=== PATIENT | female | born 1960 | race Caucasian/White ===

== ENCOUNTER 2016-05-26 14:52 | Inpatient (IN) | payer BC ==
[2016-05-26] MEDS ORDERED: DAPTOmycin 500 MG in SODIUM CHLORIDE 0.9% 50 ML IV STA (15:44)
[2016-05-26] MEDS ORDERED: SODIUM CHLORIDE 0.9% 1,000 ML IV STA (15:44)
--- NOTE | 2016-05-26 15:48 | ED ---
General Adult HPI - General Chief complaint: Skin/Abscess/Foreign Body Stated complaint: Fall/Laceration Leg Swelling Time Seen by Provider: 05/26/16 15:35 Source: patient, RN notes reviewed Mode of arrival: ambulatory Limitations: no limitations - History of Present Illness Initial comments: 55-year-old female presents to the emergency department with a chief complaint of left nails cellulitis. Patient states that back in March she was hiking in [place] she tripped and fell and got a small cut in her left nails. Patient states that about a week or 2 ago she started now some redness and erythema around the area she went to . she is put on doxycycline for home. Patient states she's been taking this for about a week and today she noticed increased redness she's having drainage from the area and she noticed increased tenderness to touch. Patient states she's also notes that her leg is almost doubled inside due to the redness and swelling. Patient states that she was concerned due to the fact that the redness and swelling just continued so she thought that she should be evaluated. She has noticed some drainage from the area. Patient denies any recent fever, chills, shortness of breath, chest pain, back pain, abdominal pain, nausea vomiting, numbness or tingling, dysuria or hematuria, constipation or diarrhea, headaches or visual changes, or any other current symptoms. - Related Data Home Medications Medication Instructions Recorded Confirmed Alendronate Sodium [Fosamax] 70 mg PO TU 05/26/16 05/26/16 Doxycycline Hyclate [Vibramycin] 100 mg PO BID 05/26/16 05/26/16 Pravastatin Sodium [Pravachol] 40 mg PO HS 05/26/16 05/26/16 diphenhydrAMINE HCL [Benadryl] 25 mg PO BID 05/26/16 05/26/16 Allergies Allergy/AdvReac Type Severity Reaction Status Date / Time Penicillins AdvReac Rash/Hives Verified 05/26/16 15:42 Review of Systems ROS Statement: Those systems with pertinent positive or pertinent negative responses have been documented in the HPI. ROS Other: All systems not noted in ROS Statement are negative. Past Medical History Past Medical History: Hyperlipidemia Additional Past Medical History / Comment(s): seasonal allergies History of Any Multi-Drug Resistant Organisms: None Reported Past Surgical History: Back Surgery, Hysterectomy Past Psychological History: No Psychological Hx Reported Smoking Status: Current every day smoker Past Alcohol Use History: Occasional Past Drug Use History: None Reported General Exam - General Exam Comments Initial Comments: General: The patient is awake and alert, in no distress, and does not appear acutely ill. Neck: The neck is supple, there is no tenderness. Cardiovascular: There is a regular rate and rhythm. No murmur, rub or gallop is appreciated. Respiratory: Lungs are clear to auscultation, respirations are non-labored, breath sounds are equal. No wheezes, stridor, rales, or rhonchi. Musculoskeletal: Sensation intact with 2+ pulses at the left flexion. Full range of motion left knee and left ankle. Patient does have a small wound to the anterior aspect of the left nails that does have some purulent discharge. Patient does appear associated redness and swelling to the left nails. Neurological: CN II-XII intact, There are no obvious motor or sensory deficits. Coordination appears grossly intact. Speech is normal. Skin: Skin is warm and dry and no rashes or lesions are noted. Psychiatric: Normal mood and affect. Limitations: no limitations Course Vital Signs 05/26/16 15:04 Temperature 98.8 F Pulse Rate 94 Respiratory 20 Rate Blood Pressure 143/74 O2 Sat by Pulse 97 Oximetry Medical Decision Making - Medical Decision Making 55-year-old female presents for left nails cellulitis that has failed outpatient treatment with a week of antibiotics intense to getting worse with more drainage and redness. This time we start patient on IV antibiotics. At this time a purulent material was drained from the abscess area. Patient tolerated well. We will admit the patient IV antibiotics. The patient will be admitted to Dr. Haynes crash the case was discussed with Dr. Archuleta. - Lab Data Result diagrams: 05/26/16 16:23 05/26/16 16:23 Lab Results 05/26/16 05/26/16 Range/Units 16:23 16:23 WBC 8.4 (3.8-10.6) k/uL RBC 4.53 (3.80-5.40) m/uL Hgb 13.8 (11.4-16.0) gm/dL Hct 42.7 (34.0-46.0) % MCV 94.2 (80.0-100.0) fL MCH 30.5 (25.0-35.0) pg MCHC 32.4 (31.0-37.0) g/dL RDW 12.6 (11.5-15.5) % Plt Count 306 (150-450) k/uL Neutrophils % 68 % Lymphocytes % 21 % Monocytes % 6 % Eosinophils % 1 % Basophils % 1 % Neutrophils # 5.7 (1.3-7.7) k/uL Lymphocytes # 1.8 (1.0-4.8) k/uL Monocytes # 0.5 (0-1.0) k/uL Eosinophils # 0.1 (0-0.7) k/uL Basophils # 0.1 (0-0.2) k/uL Sodium 141 (137-145) mmol/L Potassium 4.6 (3.5-5.1) mmol/L Chloride 102 (98-107) mmol/L Carbon Dioxide 26 (22-30) mmol/L Anion Gap 13 mmol/L BUN 14 (7-17) mg/dL Creatinine 0.68 (0.52-1.04) mg/dL Est GFR (MDRD) Af Amer >60 (>60 ml/min/1.73 sqM) Est GFR (MDRD) Non-Af >60 (>60 ml/min/1.73 sqM) Glucose 88 (74-99) mg/dL Calcium 9.8 (8.4-10.2) mg/dL Total Bilirubin 0.8 (0.2-1.3) mg/dL AST 41 H (14-36) U/L ALT 46 (9-52) U/L Alkaline Phosphatase 107 (38-126) U/L Total Protein 8.0 (6.3-8.2) g/dL Albumin 4.6 (3.5-5.0) g/dL - Radiology Data Radiology results: report reviewed, image reviewed Disposition Clinical Impression: Cellulitis of left lower leg, Failure of outpatient treatment, Abscess of left lower leg Disposition: ADMITTED IP TO THIS [facility] Condition: Stable Time of Disposition: 18:13 Decision Date: 05/26/16 Decision Time: 18:13
[2016-05-26 16:39] LABS: Basophils # (A) 0.1 k/uL (0-0.2); Basophils % (A) 1 %; CH 31.6; CHCM 33.6; Eosinophils # (A) 0.1 k/uL (0-0.7); Eosinophils % (A) 1 %; HCT 42.7 % (34.0-46.0); HDW 2.44; HGB 13.8 gm/dL (11.4-16.0); Luc # (Auto) 0.26; Luc % (Auto) 3; Lymphocytes # (A) 1.8 k/uL (1.0-4.8); Lymphocytes % (A) 21 %; MCH 30.5 pg (25.0-35.0); MCHC 32.4 g/dL (31.0-37.0); MCV 94.2 fL (80.0-100.0); Mean Platelet Volume 6.8; Monocytes # (A) 0.5 k/uL (0-1.0); Monocytes % (A) 6 %; Neutrophils # (A) 5.7 k/uL (1.3-7.7); Neutrophils % (A) 68 %; RBC 4.53 m/uL (3.80-5.40); RDW 12.6 % (11.5-15.5); WBC 8.4 k/uL (3.8-10.6)
[2016-05-26 16:48] LABS: ALT 46 U/L (9-52); AST 41 U/L (14-36); Alkaline Phosphatase 107 U/L (38-126); Anion Gap 13 mmol/L; Blood Urea Nitrogen 14 mg/dL (7-17); Calcium 9.8 mg/dL (8.4-10.2); Carbon Dioxide 26 mmol/L (22-30); Chloride 102 mmol/L (98-107); Glucose 88 mg/dL (74-99); Non-African American GFR(MDRD) >60 (>60 ml/min/1.73 sqM); Sodium 141 mmol/L (137-145); Total Bilirubin 0.8 mg/dL (0.2-1.3)
[2016-05-26 16:51] LABS: Potassium 4.6 mmol/L (3.5-5.1)
--- NOTE | 2016-05-26 17:15 | US ---
EXAMINATION TYPE: US extremity nonvasc mass LT DATE OF EXAM: 05/26/2016 5:02 PM COMPARISON: NONE CLINICAL HISTORY: Pain. 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 IMPRESSION: The left anterior calf region in the area of concern shows a complex mass that measures approximately 6 x 1.6 cm in the subcutaneous tissues at could relate to an abscess or hematoma. Clini ciro correlation is recommended.
--- NOTE | 2016-05-26 18:06 | XR ---
EXAMINATION TYPE: XR tibia fibula LT DATE OF EXAM: 05/26/2016 5:57 PM COMPARISON: NONE HISTORY: Cellulitis TECHNIQUE: 4 views FINDINGS: I see no fracture nor dislocation. Ankle joint and knee joint appear intact. There is soft tissue swelling around the lower leg. I see no focal bone destruction. IMPRESSION: Soft tissue swelling. No fracture. No sign of osteomyelitis.
[2016-05-26] MEDS ORDERED: ACETAMINOPHEN TAB 325 MG TAB PO PRN (18:13)
[2016-05-26] MEDS ORDERED: ONDANSETRON 4 MG/2 ML VIAL IVP PRN (18:13)
[2016-05-26] MEDS ORDERED: NALOXONE 0.4 MG/ML 1 ML VIAL IV PRN (18:13)
[2016-05-26] MEDS ORDERED: KETOROLAC 30 MG/ML 1 ML VIAL IVP PRN (18:13)
[2016-05-26] MEDS ORDERED: NON-FORMULARY DRUG (Alendronate Sodium [Fosamax] 70 MG) PO SCH (18:15)
[2016-05-26] MEDS: SODIUM CHLORIDE 0.9% 1,000 ML IV SCH (19:47)
[2016-05-26] MEDS: PRAVASTATIN SODIUM 40 MG TAB PO SCH (20:05)
[2016-05-26] MEDS: diphenhydrAMINE 25 MG CAP PO SCH (20:05)
[2016-05-26] MEDS ORDERED: IV VANCOMYCIN PER PHARMACY 1 EACH MISC MISCELLANE PRN (21:37)
[2016-05-26] MEDS ORDERED: VANCOMYCIN 1,250 MG in SODIUM CHLORIDE 0.9% 250 ML IVPB STA (21:42)
[2016-05-27] MEDS: SODIUM CHLORIDE 0.9% 1,000 ML IV SCH ×2 (06:29→14:38)
[2016-05-27 08:36] LABS: Basophils # (A) 0.1 k/uL (0-0.2); Basophils % (A) 1 %; CH 31.7; CHCM 32.6; Eosinophils # (A) 0.1 k/uL (0-0.7); Eosinophils % (A) 2 %; HCT 39.7 % (34.0-46.0); HDW 2.41; HGB 12.8 gm/dL (11.4-16.0); Luc # (Auto) 0.28; Luc % (Auto) 4; Lymphocytes # (A) 1.6 k/uL (1.0-4.8); Lymphocytes % (A) 25 %; MCH 31.5 pg (25.0-35.0); MCHC 32.3 g/dL (31.0-37.0); MCV 97.5 fL (80.0-100.0); Mean Platelet Volume 7.3; Monocytes # (A) 0.4 k/uL (0-1.0); Monocytes % (A) 7 %; Neutrophils # (A) 3.9 k/uL (1.3-7.7); Neutrophils % (A) 61 %; RBC 4.07 m/uL (3.80-5.40); RDW 12.7 % (11.5-15.5); WBC 6.4 k/uL (3.8-10.6); WBC (Perox) 6.91
[2016-05-27 08:57] LABS: ALT 23 U/L (9-52); AST 19 U/L (14-36); Alkaline Phosphatase 88 U/L (38-126); Anion Gap 9 mmol/L; Blood Urea Nitrogen 12 mg/dL (7-17); Carbon Dioxide 26 mmol/L (22-30); Chloride 108 mmol/L (98-107); Glucose 103 mg/dL (74-99); Non-African American GFR(MDRD) >60 (>60 ml/min/1.73 sqM); Potassium 4.3 mmol/L (3.5-5.1); Sodium 143 mmol/L (137-145); Total Bilirubin 0.5 mg/dL (0.2-1.3); Total Protein 6.3 g/dL (6.3-8.2)
--- NOTE | 2016-05-27 09:06 | P.CONS ---
History of Present Illness - Reason for Consult Consult date: 05/27/16 Abscess left nails - History of Present Illness This is a 55-year-old female. She gives history that she was hiking in [place] in March around [place] time and she ended up tripping and falling and hitting her left nails on a rock. She states that time she had 2 small lacerations. She ended up going to urgent care and had ultrasound, x- rays done and was instructed to keep the area clean and dressed. She did not receive antibiotics at that time. She states the areas scabbed over and the one closest to her knee healed completely but the one distally occasionally would use if pressure was applied to the area. Last week she followed up with her primary care physician was placed on doxycycline. She states she was at work yesterday and noticed that her lower leg had extreme edema along with redness. She denies any significant pain. She came into [facility] emergency center for evaluation. She was afebrile. White count 8.4, GFR greater than 60, AST 41, albumin 4.6. Wound culture was obtained from the left leg which is showing a gram-negative bacilli and gram-positive cocci. She received 1 dose of daptomycin in the emergency center and has been started on vancomycin and admitted to the [facility] floor. She had a tib-fib x-ray that showed soft tissue swelling with no sign of osteomyelitis. Ultrasound showed a complex mass of 6 x 1.6 cm abscess or hematoma in the left anterior calf. Patient states the area is slightly improved and slightly less tender since admission. Her tetanus was updated at the urgent care center recently. Review of Systems All systems: negative Constitutional: Denies anorexia, Denies chills, Denies fatigue, Denies fever, Denies lethargy, Denies poor appetite, Denies sweats, Denies weakness Eyes: denies blurred vision, denies pain Ears, nose, mouth and throat: Denies dental pain, Denies dysphagia, Denies headache, Denies mouth pain, Denies nasal congestion, Denies sore throat, Denies vertigo Cardiovascular: Denies chest pain, Denies dyspnea on exertion, Denies edema, Denies leg edema, Denies lightheadedness, Denies shortness of breath, Denies syncope Respiratory: Denies cough, Denies cough with sputum, Denies dyspnea, Denies excessive sputum, Denies hemoptysis, Denies home oxygen Gastrointestinal: Denies abdominal pain, Denies diarrhea, Denies nausea, Denies vomiting Genitourinary: Denies dysuria, Denies hematuria, Denies urgency, Denies urinary frequency Musculoskeletal: Denies myalgias Integumentary: Reports wounds, Denies pruritus, Denies rash Neurological: Denies double vision, Denies numbness, Denies syncope, Denies vertigo, Denies weakness, Denies visual changes Psychiatric: Denies anxiety, Denies depression Endocrine: Denies fatigue, Denies weight change Past Medical History Past Medical History: Hyperlipidemia, Osteoarthritis (OA) Additional Past Medical History / Comment(s): seasonal allergies, 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 NO OUTSIDE SERVICES RECIEVED. 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 No pets in the home. Recent travel to [place] in March and also to [place]. Smoking Status: Never smoker Past Alcohol Use History: Occasional Past Drug Use History: None Reported - Past Family History Mother Family Medical History: Cancer, Diabetes Mellitus Additional Family Medical History / Comment(s): BREAST CANCER, FROM A BLOOD CLOT Father Family Medical History: Coronary Artery Disease (CAD) Additional Family Medical History / Comment(s): HAD A HEART TRANSPLANT AT AGE 52 -LIVED FOR 5 MORE YEARS. Medications and Allergies Home Medications Medication Instructions Recorded Confirmed Type Alendronate Sodium [Fosamax] 70 mg PO TU 05/26/16 05/26/16 History Doxycycline Hyclate [Vibramycin] 100 mg PO BID 05/26/16 05/26/16 History Pravastatin Sodium [Pravachol] 40 mg PO 05/26/16 05/26/16 History diphenhydrAMINE HCL [Benadryl] 25 mg PO BID 05/26/16 05/26/16 History Allergies Allergy/AdvReac Type Severity Reaction Status Date / Time Penicillins AdvReac Rash/Hives Verified 05/26/16 15:42 Physical Exam Vitals: Vital Signs Temp Pulse Pulse Resp BP BP Pulse Ox 05/27/16 07:00 99.6 F 87 18 128/76 97 05/26/16 23:35 97.6 F 96 20 133/79 96 05/26/16 19:53 97.6 F 96 20 133/79 96 05/26/16 19:24 98.8 F 99 18 154/74 99 05/26/16 18:38 99 18 154/74 99 05/26/16 18:15 91 18 129/75 100 Intake and Output 05/26/16 05/27/16 05/27/16 22:59 06:59 14:59 Intake Total 1400 Balance 1400 Intake: Intake, IV Titration 1400 Amount DAPTOmycin 500 mg In 50 Sodium Chloride 0.9% 50 ml @ 100 mls/hr IV ONCE STA Rx#:[id number] Sodium Chloride 0.9% 1, 1100 000 ml @ 100 mls/hr IV . Q10H HARSHAL Rx#:[id number] Vancomycin 1,250 mg In 250 Sodium Chloride 0.9% 250 ml @ 125 mls/hr IVPB Q12HR HARSHAL Rx#:[id number] Other: Voiding Method Toilet # Voids 1 2 Weight 73.482 kg Gen: This is a 55-year-old female. She is sitting up in bed and appears to be in no acute distress. HEENT: Head is atraumatic, normocephalic. Pupils equal, round. Sclerae is anicteric. Oral mucous membranes are moist. Dentition is in good order. No lesions noted. NECK: Supple. No JVD. No lymphadenopathy. No thyromegaly. LUNGS: Clear to auscultation. No wheezes or rhonchi. No intercostal retractions. HEART: Regular rate and rhythm. No murmur. ABDOMEN: Soft. Bowel sounds are present. No masses. No tenderness. EXTREMITIES: No pedal edema. No calf tenderness. Left pretibial area has area of erythema, edema with small wound in the center, looks like puncture wound. Area is warm to the touch. NEUROLOGICAL: Patient is awake, alert and oriented x3. Cranial nerves 2 through 12 are grossly intact. Results Results: Laboratory Results WBC 6.4 k/uL (3.8-10.6) 05/27/16 07:54 RBC 4.07 m/uL (3.80-5.40) 05/27/16 07:54 Hgb 12.8 gm/dL (11.4-16.0) 05/27/16 07:54 Hct 39.7 % (34.0-46.0) 05/27/16 07:54 MCV 97.5 fL (80.0-100.0) 05/27/16 07:54 MCH 31.5 pg (25.0-35.0) 05/27/16 07:54 MCHC 32.3 g/dL (31.0-37.0) 05/27/16 07:54 RDW 12.7 % (11.5-15.5) 05/27/16 07:54 Plt Count 267 k/uL (150-450) 05/27/16 07:54 Neutrophils % 61 % 05/27/16 07:54 Lymphocytes % 25 % 05/27/16 07:54 Monocytes % 7 % 05/27/16 07:54 Eosinophils % 2 % 05/27/16 07:54 Basophils % 1 % 05/27/16 07:54 Neutrophils # 3.9 k/uL (1.3-7.7) 05/27/16 07:54 Lymphocytes # 1.6 k/uL (1.0-4.8) 05/27/16 07:54 Monocytes # 0.4 k/uL (0-1.0) 05/27/16 07:54 Eosinophils # 0.1 k/uL (0-0.7) 05/27/16 07:54 Basophils # 0.1 k/uL (0-0.2) 05/27/16 07:54 APTT 24.5 sec (22.0-30.0) 05/27/16 07:54 Sodium 143 mmol/L (137-145) 05/27/16 07:54 Potassium 4.3 mmol/L (3.5-5.1) 05/27/16 07:54 Chloride 108 mmol/L (98-107) H 05/27/16 07:54 Carbon Dioxide 26 mmol/L (22-30) 05/27/16 07:54 Anion Gap 9 mmol/L 05/27/16 07:54 BUN 12 mg/dL (7-17) 05/27/16 07:54 Creatinine 0.67 mg/dL (0.52-1.04) 05/27/16 07:54 Est GFR (MDRD) Af Amer >60 (>60 ml/min/1.73 sqM) 05/27/16 07:54 Est GFR (MDRD) Non-Af >60 (>60 ml/min/1.73 sqM) 05/27/16 07:54 Glucose 103 mg/dL (74-99) H 05/27/16 07:54 Calcium 9.0 mg/dL (8.4-10.2) 05/27/16 07:54 Total Bilirubin 0.5 mg/dL (0.2-1.3) 05/27/16 07:54 AST 19 U/L (14-36) 05/27/16 07:54 ALT 23 U/L (9-52) 05/27/16 07:54 Alkaline Phosphatase 88 U/L (38-126) 05/27/16 07:54 Total Protein 6.3 g/dL (6.3-8.2) 05/27/16 07:54 Albumin 3.6 g/dL (3.5-5.0) 05/27/16 07:54 CBC & Chem 7: 05/27/16 07:54 05/27/16 07:54 Assessment and Plan Plan: This is a 55-year-old female who presents to hospital with wound is nonhealing and worsening despite outpatient antibiotics to the left pretibial area. Ultrasound shows a complex mass of 6 x 1.6 cm either abscess or hematoma. Consult with Dr. Damion Monson has been added for I&D of the wound. She is currently on vancomycin. Will plan to add Fortaz for gram-negative coverage. Tetanus status is up-to-date. Continue supportive care. Further recommendations as patient progresses. The above dictated assessment and findings were discussed with Dr. Sher. The impression and plan of care have been directed as dictated. Aaliyah Taylor nurse practitioner acting as scribe for Dr. Sher. Time with Patient: Greater than 30
[2016-05-27] MEDS: HEPARIN SODIUM,PORCINE 5,000 UNIT/ML 1 ML VIAL SQ SCH ×2 (10:07→21:11)
--- NOTE | 2016-05-27 10:25 | P.GSCN ---
History of Present Illness Consult date: 05/27/16 Reason for Consult: Surgical eval left pretibial area possible abscess or hematoma possible incision and drainage needed History of present illness: 55-year-old female being seen for a surgical consultation at the request of infectious disease to evaluate a left pretibial area and nonhealing wound onset March 2016 after patient reportedly was hiking in [place] area tripped and fell landed on her left nails hitting a rock. After the incident the patient stated that she had sustained 2 small lacerations. Patient stated that she did go to an urgent care in the area. ultrasound done which according to the patient showed no evidence of a blood clot. X-rays were also obtained was no evidence of any acute abnormality. Patient was instructed to keep the area clean and dry she did not receive antibiotics. Patient stated that the area closest to her knee completely healed distally there was a small open area that did not completely close reportedly was doing well up until last week when she was at her primary care doctor's and noted to have swelling was placed on an antibiotic doxycycline. Additionally patient stated that yesterday she was at work she noted having significant edema involving the left lower extremity which was new. There was also an increase in the redness. Patient stated that if she placed her hands along the the wound bilaterally and pushed she could express serous drainage from the area. No odor noted patient also states that she has not had any fever chills. Patient states that she did become concerned and came into the emergency room to be evaluated for the above-mentioned symptoms. A surgical eval was requested to evaluate by ultrasound a complex mass measuring 6 by 1.6 cm. 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 NO OUTSIDE SERVICES RECIEVED. 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 No pets in the home. Recent travel to [place] in March and also to [place]. Smoking Status: Never smoker Past Alcohol Use History: Occasional Past Drug Use History: None Reported - Past Family History Mother Family Medical History: Cancer, Diabetes Mellitus Additional Family Medical History / Comment(s): BREAST CANCER, FROM A BLOOD CLOT Father Family Medical History: Coronary Artery Disease (CAD) Additional Family Medical History / Comment(s): HAD A HEART TRANSPLANT AT AGE 54 -LIVED FOR 5 MORE YEARS. Medications and Allergies Home Medications Medication Instructions Recorded Confirmed Type Alendronate Sodium [Fosamax] 70 mg PO TU 05/26/16 05/26/16 History Doxycycline Hyclate [Vibramycin] 100 mg PO BID 05/26/16 05/26/16 History Pravastatin Sodium [Pravachol] 40 mg PO HS 05/26/16 05/26/16 History diphenhydrAMINE HCL [Benadryl] 25 mg PO BID 05/26/16 05/26/16 History Allergies Allergy/AdvReac Type Severity Reaction Status Date / Time Penicillins AdvReac Rash/Hives Verified 05/26/16 15:42 Surgical - Exam Vital Signs Temp Pulse Resp BP Pulse Ox 98.8 F 94 20 143/74 97 05/26/16 15:04 05/26/16 15:04 05/26/16 15:04 05/26/16 15:04 05/26/16 15:04 GENERAL APPEARANCE: Less than 55-year-old female patient is alert, oriented, in no acute distress. Sitting up in bed talkative pleasant cooperative VITAL SIGNS: Reviewed HEENT: Head is normocephalic and atraumatic. Pupils are equal and reactive. The nares are patent. Oropharynx is clear without lesions. NECK: Supple without lymphadenopathy. Traches midline. HEART: S1, S2. Regular rate and rhythm. No murmur noted denying chest pain LUNGS: No crackles or wheezes are heard. Adequate air movement bilaterally no wheezing rales or rhonchi on room air sats are 94% no cough noted ABDOMEN: Soft, nontender, nondistended with good bowel sounds. No peritoneal signs. No palpable organomegaly or masses. Reports no nausea vomiting EXTREMITIES: Normal skin color and turgor. No cyanosis, rash, ulceration, clubbing upper extremities no evidence of edema. The right lower extremity no edema. The left pretibial area positive erythema noted warm to touch small open puncture wound noted tenderness noted able to express serous drainage from the area the pretibial area on the left firm Radial pedal pulses are 2/4 bilaterally. NEUROLOGICAL: No focal deficits. Strength and sensation are grossly intact. Results - Labs 05/27/16 07:54 05/27/16 07:54 Abnormal Lab Results - Last 24 Hours (Table) 05/27/16 Range/Units 07:54 Chloride 108 H (98-107) mmol/L Glucose 103 H (74-99) mg/dL Diabetes panel 05/27/16 Range/Units 07:54 Sodium 143 (137-145) mmol/L Potassium 4.3 (3.5-5.1) mmol/L Chloride 108 H (98-107) mmol/L Carbon Dioxide 26 (22-30) mmol/L BUN 12 (7-17) mg/dL Creatinine 0.67 (0.52-1.04) mg/dL Glucose 103 H (74-99) mg/dL Calcium 9.0 (8.4-10.2) mg/dL AST 19 (14-36) U/L ALT 23 (9-52) U/L Alkaline Phosphatase 88 (38-126) U/L Total Protein 6.3 (6.3-8.2) g/dL Albumin 3.6 (3.5-5.0) g/dL Calcium panel 05/27/16 Range/Units 07:54 Calcium 9.0 (8.4-10.2) mg/dL Albumin 3.6 (3.5-5.0) g/dL Pituitary panel 05/27/16 Range/Units 07:54 Sodium 143 (137-145) mmol/L Potassium 4.3 (3.5-5.1) mmol/L Chloride 108 H (98-107) mmol/L Carbon Dioxide 26 (22-30) mmol/L BUN 12 (7-17) mg/dL Creatinine 0.67 (0.52-1.04) mg/dL Glucose 103 H (74-99) mg/dL Calcium 9.0 (8.4-10.2) mg/dL Adrenal panel 05/27/16 Range/Units 07:54 Sodium 143 (137-145) mmol/L Potassium 4.3 (3.5-5.1) mmol/L Chloride 108 H (98-107) mmol/L Carbon Dioxide 26 (22-30) mmol/L BUN 12 (7-17) mg/dL Creatinine 0.67 (0.52-1.04) mg/dL Glucose 103 H (74-99) mg/dL Calcium 9.0 (8.4-10.2) mg/dL Total Bilirubin 0.5 (0.2-1.3) mg/dL AST 19 (14-36) U/L ALT 23 (9-52) U/L Alkaline Phosphatase 88 (38-126) U/L Total Protein 6.3 (6.3-8.2) g/dL Albumin 3.6 (3.5-5.0) g/dL Assessment and Plan Plan: Impression Present on admission left lower extremity pain with increase edema likely due to abscess or hematoma Ultrasound left lower extremity shows complex mass measuring 6 x 1.6 cm hematoma or abscess undetermined History of a fall after hiking in [place] March 2016 landing on left naisl present on admission increase edema left lower extremity with increased tenderness redness cellulitis with abscess or hematoma failed outpatient treatment Current every day smoker Seasonal ALLERGIES Plan Scheduled for an incision and drainage of the left pretibial area tomorrow per Dr. Bruno case was discussed with the patient and the patient's spouse at the bedside questions answered Continue recommendations by infectious disease defer to Continue current medical management defer to Pain control Follow-up on pending cultures DVT and GI prophylaxis Further surgical recommendations pending Thank you for allowing us to participate in the surgical care of your patient will follow with you The above dictated assessment and findings were discussed with dr Lorna Bruno. Impression and the plan of care have been dictated as directed. Kim Jackson nurse practitioner acting as a scribe for Dr. Dubois
[2016-05-27] MEDS: diphenhydrAMINE 25 MG CAP PO SCH ×2 (10:27→21:10)
[2016-05-27] MEDS: VANCOMYCIN 1,250 MG in SODIUM CHLORIDE 0.9% 250 ML IVPB SCH ×2 (10:27→21:11)
--- NOTE | 2016-05-27 13:01 | HP ---
DATE OF ADMISSION: 05/26/2016 PRESENTING COMPLAINT: Pain and swelling of the left lower extremity. HISTORY OF PRESENTING COMPLAINT: This is a very pleasant 55-year-old patient of Dr. Garcia out of [facility]. Patient's chronic stable medical conditions include hyperlipidemia, osteoarthritis, seasonal allergies osteopenia. Patient was tracking up in [place] and she was wearing a pair of jeans when she hit against a rock on the left leg, it was sharp, actually cut through the jeans. Patient had some bleeding. The rock was described as sharp, clean, not wet, no fungus was noted. Subsequently patient ( ) the next day and wrapped up the leg. Here, the patient started draining, sometimes bloody, clear. Patient's leg did become black and blue. Denied any fever. It has become rather tender and swollen. Ultrasound was done, DVT was ruled out. Patient was admitted with a possible abscess. REVIEW OF SYSTEMS: CONSTITUTIONAL: Tired. HEENT: None. RESPIRATORY: None. CARDIOVASCULAR: None. GASTROINTESTINAL: None. GENITOURINARY: None. MUSCULOSKELETAL: Pain in the different joints. DERMATOLOGICAL: As above. LYMPHATICS: None. PSYCHIATRY: None. NEUROLOGICAL: None. Past history of hyperlipidemia, osteoarthritis, seasonal allergies. PAST SURGICAL HISTORY: Back surgery, hysterectomy and back surgery for herniated disc, colonoscopy, right shoulder surgery. SOCIAL HISTORY: . 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 No smoking. Alcohol: Occasional glass of wine at night. Family history of diabetes, breast cancer. HOME MEDICATIONS: 1. Benadryl 25 mg p.o. b.i.d. 2. Pravachol 40 mg q.h.s. 3. Doxycycline 100 mg b.i.d. 4. Fosamax 70 mg p.o. on Tuesdays. Allergies to PENICILLIN causing a rash. On examination, temperature 98.8, pulse 94, respirations 20, blood pressure 143/74, pulse ox 97% on room air. GENERAL APPEARANCE: Average built, sitting up on a chair, comfortable. EYES: Pupils equal. Conjunctivae normal. HEENT: External appearance of nose and ears normal. Oral cavity normal. NECK: JVD not raised. Mass not palpable. RESPIRATORY: Effort normal. Lungs are clear. CARDIOVASCULAR: First and second sounds normal. Minimal edema. ABDOMEN: Soft, nontender. Liver and spleen not palpable. LYMPHATIC: No lymph nodes palpable in neck or axillae. PSYCHIATRY: Alert and oriented x3. Mood and affect normal. NEUROLOGICAL: Pupils equal. Cranial nerves grossly intact. Power and sensation grossly intact. EXTREMITIES: Left leg is somewhat swollen compared to the right. There is a tenderness, there is a puncture wound just below about 5 inches below the kneecap. Skin is tender, boggy, red. INVESTIGATIONS: White count 8.4, hemoglobin 13.8, potassium 4.6. ASSESSMENT: 1. Left leg wound about 10 days ago with no systemic manifestations of sepsis, but this a wound with the patient been on doxycycline, which is good coverage for staph not healing. Patient probably has an underlying abscess that needs to be I&D. General Surgery is consulted and so was ID. 2. Hyperlipidemia. 3. Primary osteoarthritis of multiple joints, bilateral. PLAN: Patient currently started on ceftazidime and vancomycin. The I&D will be carried. Care was discussed in detail with the patient and . Questions were answered.
[2016-05-27] MEDS: PRAVASTATIN SODIUM 40 MG TAB PO SCH (21:11)
--- NOTE | 2016-05-27 23:03 | P.CON ---
Consult Note - . Consult date: 05/27/16 Assessment/Plan:: This is a 55-year-old female. She gives history that she was hiking in [place] in March around [place] time and she ended up tripping and falling and hitting her left nails on a rock. She states that time she had 2 small lacerations. She ended up going to urgent care and had ultrasound, x- rays done and was instructed to keep the area clean and dressed. She did not receive antibiotics at that time. She states the areas scabbed over and the one closest to her knee healed completely but the one distally occasionally would use if pressure was applied to the area. Last week she followed up with her primary care physician was placed on doxycycline. She states she was at work yesterday and noticed that her lower leg had extreme edema along with redness. She denies any significant pain. She came into [facility] emergency center for evaluation. She was afebrile. White count 8.4, GFR greater than 60, AST 41, albumin 4.6. Wound culture was obtained from the left leg which is showing a gram-negative bacilli and gram-positive cocci. She received 1 dose of daptomycin in the emergency center and has been started on vancomycin and [facility] She had a tib-fib x-ray that showed soft tissue swelling with no sign of osteomyelitis. Ultrasound showed a complex mass of 6 x 1.6 cm abscess or hematoma in the left anterior calf. Patient states the area is slightly improved and slightly less tender since admission. Her tetanus was updated at the urgent care center recently. Please see the consult note is dictated by nurse practitioner Mrs. Aaliyah Taylor. Social M[place]um has a history of exposure when she was hiking. Currently reveals evidence of gram-negative bacilli. She been seen by surgery and his plans for surgical incision and drainage tomorrow. This will help determine the depth of the infection. If there is bony involvement will need to consider a longer course of outpatient antibiotic therapy. Fortaz added pending further culture data. Wound care can be addressed postoperative period pain control is adequate. Patient takes multivitamins and suggested take probiotics. I agree with evaluation, assessment and plan as dictated a nurse practitioner Mrs. Aaliyah Taylor.
[2016-05-28] MEDS: SODIUM CHLORIDE 0.9% 1,000 ML IV SCH ×3 (05:50→22:18)
[2016-05-28] MEDS ORDERED: VANCOMYCIN TROUGH DUE 1 EACH MISC MISCELLANE ONE (08:00)
[2016-05-28] MEDS: HEPARIN SODIUM,PORCINE 5,000 UNIT/ML 1 ML VIAL SQ SCH ×2 (08:05→22:19)
[2016-05-28] MEDS: VANCOMYCIN 1,250 MG in SODIUM CHLORIDE 0.9% 250 ML IVPB SCH (09:11)
[2016-05-28] MEDS: diphenhydrAMINE 25 MG CAP PO SCH ×2 (14:19→21:22)
[2016-05-28] MEDS ORDERED: HYDROmorphone 1 MG/ML 1 ML SYRINGE IVP PRN (19:47)
[2016-05-28] MEDS ORDERED: MIDAZOLAM 2 MG/2 ML VIAL IV PRN (19:47)
[2016-05-28] MEDS: PRAVASTATIN SODIUM 40 MG TAB PO SCH (21:11)
--- NOTE | 2016-05-28 21:57 | PN ---
DATE OF SERVICE: 05/28/2016 PRESENTING COMPLAINT: Abscess lower extremity left lower extremity. INTERVAL HISTORY: This is a patient with abscess on the left nails following an injury from a rock, awaiting I&D. I saw this patient earlier this morning. No fever. Pain is controlled. is at the bedside. Review of systems done for constitutional, cardiovascular, GI, pulmonary; relevant findings as above. Current medications include IV Ceftazidime and Vancomycin. On examination, temperature 97.6, pulse 80, respirations 16, blood pressure 120/88, pulse ox 97% on room air. GENERAL APPEARANCE: Sitting up, comfortable. EYES: Pupils equal. Conjunctivae normal. NECK: JVD not raised. Mass not palpable. RESPIRATORY: Effort normal. LUNGS: Clear. CARDIOVASCULAR: First and second sounds normal. No edema. EXTREMITIES: Left nails has got an area of abscess with a puncture wound. INVESTIGATIONS: Vanco trough was noted. ASSESSMENT: 1. Left leg wound with abscess but no systemic manifestations. Awaiting I&D, having failed outpatient treatment. 2. Hyperlipidemia. 3. Primary osteoarthritis multiple joints, bilateral. PLAN: Continue current medications. Care was discussed with her at the bedside.
--- NOTE | 2016-05-28 23:07 | P.PN ---
Subjective Principal diagnosis: Left leg abscess This is a 55-year-old female. She gives history that she was hiking in [place] in March around [place] time and she ended up tripping and falling and hitting her left nails on a rock. She states that time she had 2 small lacerations. She ended up going to urgent care and had ultrasound, x- rays done and was instructed to keep the area clean and dressed. She did not receive antibiotics at that time. She states the areas scabbed over and the one closest to her knee healed completely but the one distally occasionally would use if pressure was applied to the area. Last week she followed up with her primary care physician was placed on doxycycline. She states she was at work yesterday and noticed that her lower leg had extreme edema along with redness. She denies any significant pain. She came into [facility] emergency center for evaluation. She was afebrile. White count 8.4, GFR greater than 60, AST 41, albumin 4.6. Wound culture was obtained from the left leg which is showing a gram-negative bacilli and gram-positive cocci. She received 1 dose of daptomycin in the emergency center and has been started on vancomycin and [facility] She had a tib-fib x-ray that showed soft tissue swelling with no sign of osteomyelitis. Ultrasound showed a complex mass of 6 x 1.6 cm abscess or hematoma in the left anterior calf. Patient states the area is slightly improved and slightly less tender since admission. Her tetanus was updated at the urgent care center recently. Patient is feeling somewhat better today. She is having no significant fever, chills or rigors. Leg is still quite swollen and erythematous. For surgical incision and drainage in the morning. Objective - Vital Signs Vital signs: Vital Signs Temp 98.6 F 05/28/16 15:00 Pulse 84 05/28/16 15:00 Resp 18 05/28/16 15:00 BP 132/80 05/28/16 15:00 Pulse Ox 98 05/28/16 15:00 Intake & Output 05/28/16 05/28/16 05/29/16 06:59 18:59 06:59 Intake Total 480 853 200 Balance 480 853 200 Intake: Intake, IV Titration 853 Amount Sodium Chloride 0.9% 1, 800 000 ml @ 100 mls/hr IV . Q10H [facility] Rx#:[id number] Vancomycin 1,250 mg In 3 Sodium Chloride 0.9% 250 ml @ 125 mls/hr IVPB Q12HR [facility] Rx#:[id number] cefTAZidime 1 gm In 50 Sodium Chloride 0.9% 50 ml @ 100 mls/hr IVPB Q8HR [facility] Rx#:[id number] Oral 480 200 Other: Voiding Method Toilet Toilet Toilet # Voids 3 - Exam Gen: This is a 55-year-old female. She is sitting up in bed and appears to be in no acute distress. HEENT: Head is atraumatic, normocephalic. Pupils equal, round. Sclerae is anicteric. Oral mucous membranes are moist. Dentition is in good order. No lesions noted. NECK: Supple. No JVD. No lymphadenopathy. No thyromegaly. LUNGS: Clear to auscultation. No wheezes or rhonchi. No intercostal retractions. HEART: Regular rate and rhythm. No murmur. ABDOMEN: Soft. Bowel sounds are present. No masses. No tenderness. EXTREMITIES: No pedal edema. No calf tenderness. Left pretibial area has area of erythema, edema with small wound in the center, is punctate in nature. Area is warm to the touch. NEUROLOGICAL: Patient is awake, alert and oriented x3. - Labs CBC & Chem 7: 05/27/16 07:54 05/27/16 07:54 Labs: Laboratory Results WBC 6.4 k/uL (3.8-10.6) 05/27/16 07:54 RBC 4.07 m/uL (3.80-5.40) 05/27/16 07:54 Hgb 12.8 gm/dL (11.4-16.0) 05/27/16 07:54 Hct 39.7 % (34.0-46.0) 05/27/16 07:54 MCV 97.5 fL (80.0-100.0) 05/27/16 07:54 MCH 31.5 pg (25.0-35.0) 05/27/16 07:54 MCHC 32.3 g/dL (31.0-37.0) 05/27/16 07:54 RDW 12.7 % (11.5-15.5) 05/27/16 07:54 Plt Count 267 k/uL (150-450) 05/27/16 07:54 Neutrophils % 61 % 05/27/16 07:54 Lymphocytes % 25 % 05/27/16 07:54 Monocytes % 7 % 05/27/16 07:54 Eosinophils % 2 % 05/27/16 07:54 Basophils % 1 % 05/27/16 07:54 Neutrophils # 3.9 k/uL (1.3-7.7) 05/27/16 07:54 Lymphocytes # 1.6 k/uL (1.0-4.8) 05/27/16 07:54 Monocytes # 0.4 k/uL (0-1.0) 05/27/16 07:54 Eosinophils # 0.1 k/uL (0-0.7) 05/27/16 07:54 Basophils # 0.1 k/uL (0-0.2) 05/27/16 07:54 APTT 24.5 sec (22.0-30.0) 05/27/16 07:54 Sodium 143 mmol/L (137-145) 05/27/16 07:54 Potassium 4.3 mmol/L (3.5-5.1) 05/27/16 07:54 Chloride 108 mmol/L (98-107) H 05/27/16 07:54 Carbon Dioxide 26 mmol/L (22-30) 05/27/16 07:54 Anion Gap 9 mmol/L 05/27/16 07:54 BUN 12 mg/dL (7-17) 05/27/16 07:54 Creatinine 0.67 mg/dL (0.52-1.04) 05/27/16 07:54 Est GFR (MDRD) Af Amer >60 (>60 ml/min/1.73 sqM) 05/27/16 07:54 Est GFR (MDRD) Non-Af >60 (>60 ml/min/1.73 sqM) 05/27/16 07:54 Glucose 103 mg/dL (74-99) H 05/27/16 07:54 Calcium 9.0 mg/dL (8.4-10.2) 05/27/16 07:54 Total Bilirubin 0.5 mg/dL (0.2-1.3) 05/27/16 07:54 AST 19 U/L (14-36) 05/27/16 07:54 ALT 23 U/L (9-52) 05/27/16 07:54 Alkaline Phosphatase 88 U/L (38-126) 05/27/16 07:54 Total Protein 6.3 g/dL (6.3-8.2) 05/27/16 07:54 Albumin 3.6 g/dL (3.5-5.0) 05/27/16 07:54 Urine HCG, Qual Not Detected (Not Detectd) 05/28/16 21:40 Vancomycin Trough 13.4 ug/mL 05/28/16 08:36 Microbiology 05/26/16 16:23 Leg - Left Gram Stain - Final 05/26/16 16:23 Leg - Left Wound Culture - Final Serratia marcescens 05/26/16 16:23 Blood Blood Culture - Preliminary No Growth after 48 hours Assessment and Plan (1) Abscess of left lower leg Narrative/Plan: Pleasant 55-year-old female presents to hospital with increasing pain and swelling to her left pretibial area. She suffered a fall while she was hiking on . She failed to respond well to therapy. Cultures been obtained showing evidence of a gram-negative organism. Serratia marcescens has now been isolated it is susceptible to quinolones as well as sulfa agents. Surgical incision and drainage is planned for the morning. If there appears to be no involvement underlying bony structure at the time of the incision and drainage wouldn't be the option for oral antibiotic therapy with ciprofloxacin to complete her course of therapy over the next couple of weeks for this complex abscess. We will follow her in the office at the end of therapy also. The findings at surgery will help direct her wound care. Status: Acute (2) Serratia marcescens infection Status: Acute
[2016-05-29] MEDS: SODIUM CHLORIDE 0.9% 1,000 ML IV SCH ×2 (04:56→15:48)
[2016-05-29] MEDS: HEPARIN SODIUM,PORCINE 5,000 UNIT/ML 1 ML VIAL SQ SCH ×2 (07:29→20:39)
[2016-05-29] MEDS: LACTATED RINGERS 1,000 ML IV SCH ×2 (07:29→20:34)
[2016-05-29] MEDS: diphenhydrAMINE 25 MG CAP PO SCH ×2 (07:29→20:39)
[2016-05-29] MEDS ORDERED: ONDANSETRON 4 MG/2 ML VIAL IVP STA (12:57)
[2016-05-29] MEDS ORDERED: DEXAMETHASONE SOD PHOSPHATE 10 MG/ML 1 ML VIAL IV ONE (12:57)
[2016-05-29] MEDS ORDERED: IV FLUID CONTINUATION 1,000 ML IV ONE (13:01)
[2016-05-29] MEDS ORDERED: HEPARIN SODIUM,PORCINE 5,000 UNIT/ML 1 ML VIAL SQ ONE (13:35)
[2016-05-29] MEDS ORDERED: fentaNYL (PF) 50 MCG/ML 2 ML AMP ONE (14:07)
[2016-05-29] MEDS ORDERED: LIDOCAINE 1% INJ 10MG/ML (20 ML MDV) ONE (14:07)
[2016-05-29] MEDS ORDERED: PROPOFOL 10 MG/ML 20 ML VIAL IV ONE (14:07)
[2016-05-29] MEDS ORDERED: MIDAZOLAM 2 MG/2 ML VIAL ONE (14:07)
[2016-05-29] MEDS ORDERED: SUCCINYLCHOLINE CHLORIDE 100 MG/5 ML SYR IV ONE (14:07)
[2016-05-29] MEDS ORDERED: HYDROcodone/APAP 5-325MG 1 EACH TAB PO PRN (14:42)
--- NOTE | 2016-05-29 14:42 | P.OP ---
Date of Procedure: 05/29/16 Preoperative Diagnosis: Abscess left anterior nails Postoperative Diagnosis: Same Procedure(s) Performed: Incision and drainage abscess left anterior nails cultures obtained Anesthesia: JYA Surgeon: Dione Turpin Estimated Blood Loss (ml): 5 IV fluids (ml): 400 Pathology: other (Necrotic tissue wall of the abscess cavity) Condition: stable Disposition: PACU Indications for Procedure: Abscess left anterior nails Operative Findings: Abscess left anterior nails Description of Procedure: The patient is a 55-year-old white female who presented to the hospital with swelling and a punctate opening in the left anterior nails. An ultrasound confirmed an abscess/hematoma cavity. The patient was taken to the operating room and the area of concern in the left nails was prepped and draped in a sterile fashion. The fluctuant area which was medial to the punctate opening was addressed initially. A small incision was made at the site that appeared to be a pocket approximately 6 cm by 2 cm in size was identified. There was no purulent drainage from this area however. This was well irrigated. Cultures were obtained. This was dissected through the skin and subcutaneous tissues into the subcutaneous fatty tissue. The area of the punctate opening was then addressed and a small opening was made at this site. Seropurulent fluid was drained. Again the pocket was approximately 6 x 3 cm in size. This was dissected through skin and subcutaneous tissues onto the bony protuberance of the nails. cultuers were obtained. The lining of this cavity appeared to be somewhat necrotic tissue and this was excised. The wound was well irrigated and packed. The patient tolerated the procedure in stable condition. All instrument and sponge counts were correct at the end of the case.
[2016-05-29 15:05] VITALS: RESP 16
[2016-05-29] MEDS ORDERED: SODIUM CHLORIDE 0.9% 500 ML IV ONE (15:18)
--- NOTE | 2016-05-29 17:53 | P.PN ---
Subjective Principal diagnosis: Left leg abscess This is a 55-year-old female. She gives history that she was hiking in [place] in March around [place] time and she ended up tripping and falling and hitting her left nails on a rock. She states that time she had 2 small lacerations. She ended up going to urgent care and had ultrasound, x- rays done and was instructed to keep the area clean and dressed. She did not receive antibiotics at that time. She states the areas scabbed over and the one closest to her knee healed completely but the one distally occasionally would use if pressure was applied to the area. Last week she followed up with her primary care physician was placed on doxycycline. She states she was at work yesterday and noticed that her lower leg had extreme edema along with redness. She denies any significant pain. She came into [facility] emergency center for evaluation. She was afebrile. White count 8.4, GFR greater than 60, AST 41, albumin 4.6. Wound culture was obtained from the left leg which is showing a gram-negative bacilli and gram-positive cocci. She received 1 dose of daptomycin in the emergency center and has been started on vancomycin and [facility] She had a tib-fib x-ray that showed soft tissue swelling with no sign of osteomyelitis. Ultrasound showed a complex mass of 6 x 1.6 cm abscess or hematoma in the left anterior calf. Patient states the area is slightly improved and slightly less tender since admission. Her tetanus was updated at the urgent care center recently. Patient is feeling better today. She is having no significant fever, chills or rigors. Leg is less swollen and erythematous. The surgical incision and drainages occurred today. It is packed. No reveals evidence of no bony involvement. Objective - Vital Signs Vital signs: Vital Signs Temp 97.0 F L 05/29/16 15:00 Pulse 87 05/29/16 15:19 Resp 16 05/29/16 15:19 BP 122/81 05/29/16 15:19 Pulse Ox 96 05/29/16 15:19 Intake & Output 05/28/16 05/29/16 05/29/16 18:59 06:59 18:59 Intake Total 853 200 850 Output Total 5 Balance 853 200 845 Intake: IV 850 Intake, IV Titration 853 Amount Sodium Chloride 0.9% 1, 800 000 ml @ 100 mls/hr IV . Q10H [facility] Rx#:[id number] Vancomycin 1,250 mg In 3 Sodium Chloride 0.9% 250 ml @ 125 mls/hr IVPB Q12HR [facility] Rx#:[id number] cefTAZidime 1 gm In 50 Sodium Chloride 0.9% 50 ml @ 100 mls/hr IVPB Q8HR [facility] Rx#:[id number] Oral 200 Output: Estimated Blood Loss 5 Other: Voiding Method Toilet Toilet Toilet # Voids 3 2 - Exam Gen: This is a 55-year-old female. She is sitting up in bed and appears to be in no acute distress. HEENT: Head is atraumatic, normocephalic. Pupils equal, round. Sclerae is anicteric. Oral mucous membranes are moist. Dentition is in good order. No lesions noted. NECK: Supple. No JVD. No lymphadenopathy. No thyromegaly. LUNGS: Clear to auscultation. No wheezes or rhonchi. No intercostal retractions. HEART: Regular rate and rhythm. No murmur. ABDOMEN: Soft. Bowel sounds are present. No masses. No tenderness. EXTREMITIES: No pedal edema. No calf tenderness. Left pretibial area has area of erythema, surgical dressing is in place and not removed given the recent proximity of the surgery NEUROLOGICAL: Patient is awake, alert and oriented x3. - Labs CBC & Chem 7: 05/27/16 07:54 05/27/16 07:54 Labs: Laboratory Results WBC 6.4 k/uL (3.8-10.6) 05/27/16 07:54 RBC 4.07 m/uL (3.80-5.40) 05/27/16 07:54 Hgb 12.8 gm/dL (11.4-16.0) 05/27/16 07:54 Hct 39.7 % (34.0-46.0) 05/27/16 07:54 MCV 97.5 fL (80.0-100.0) 05/27/16 07:54 MCH 31.5 pg (25.0-35.0) 05/27/16 07:54 MCHC 32.3 g/dL (31.0-37.0) 05/27/16 07:54 RDW 12.7 % (11.5-15.5) 05/27/16 07:54 Plt Count 267 k/uL (150-450) 05/27/16 07:54 Neutrophils % 61 % 05/27/16 07:54 Lymphocytes % 25 % 05/27/16 07:54 Monocytes % 7 % 05/27/16 07:54 Eosinophils % 2 % 05/27/16 07:54 Basophils % 1 % 05/27/16 07:54 Neutrophils # 3.9 k/uL (1.3-7.7) 05/27/16 07:54 Lymphocytes # 1.6 k/uL (1.0-4.8) 05/27/16 07:54 Monocytes # 0.4 k/uL (0-1.0) 05/27/16 07:54 Eosinophils # 0.1 k/uL (0-0.7) 05/27/16 07:54 Basophils # 0.1 k/uL (0-0.2) 05/27/16 07:54 APTT 24.5 sec (22.0-30.0) 05/27/16 07:54 Sodium 143 mmol/L (137-145) 05/27/16 07:54 Potassium 4.3 mmol/L (3.5-5.1) 05/27/16 07:54 Chloride 108 mmol/L (98-107) H 05/27/16 07:54 Carbon Dioxide 26 mmol/L (22-30) 05/27/16 07:54 Anion Gap 9 mmol/L 05/27/16 07:54 BUN 12 mg/dL (7-17) 05/27/16 07:54 Creatinine 0.67 mg/dL (0.52-1.04) 05/27/16 07:54 Est GFR (MDRD) Af Amer >60 (>60 ml/min/1.73 sqM) 05/27/16 07:54 Est GFR (MDRD) Non-Af >60 (>60 ml/min/1.73 sqM) 05/27/16 07:54 Glucose 103 mg/dL (74-99) H 05/27/16 07:54 Calcium 9.0 mg/dL (8.4-10.2) 05/27/16 07:54 Total Bilirubin 0.5 mg/dL (0.2-1.3) 05/27/16 07:54 AST 19 U/L (14-36) 05/27/16 07:54 ALT 23 U/L (9-52) 05/27/16 07:54 Alkaline Phosphatase 88 U/L (38-126) 05/27/16 07:54 Total Protein 6.3 g/dL (6.3-8.2) 05/27/16 07:54 Albumin 3.6 g/dL (3.5-5.0) 05/27/16 07:54 Urine HCG, Qual Not Detected (Not Detectd) 05/28/16 21:40 Vancomycin Trough 13.4 ug/mL 05/28/16 08:36 Microbiology 05/26/16 16:23 Leg - Left Gram Stain - Final 05/26/16 16:23 Leg - Left Wound Culture - Final Serratia marcescens 05/26/16 16:23 Blood Blood Culture - Preliminary No Growth after 48 hours Assessment and Plan (1) Abscess of left lower leg Narrative/Plan: Pleasant 55-year-old female presents to hospital with increasing pain and swelling to her left pretibial area. She suffered a fall while she was [place]. She failed to respond well to therapy. Cultures been obtained showing evidence of a gram-negative organism. Serratia marcescens has now been isolated it is susceptible to quinolones as well as sulfa agents. Surgical incision and drainage is planned for the morning. If there appears to be no involvement underlying bony structure at the time of the incision and drainage wouldn't be the option for oral antibiotic therapy with ciprofloxacin to complete her course of therapy over the next couple of weeks for this complex abscess. We will follow her in the office at the end of therapy also. The findings at surgery will help direct her wound care. Status: Acute (2) Serratia marcescens infection Status: Acute
--- NOTE | 2016-05-29 18:06 | PN ---
DATE OF SERVICE: 05/29/2016 PRESENTING COMPLAINT: Abscess left lower extremity. INTERVAL HISTORY: This is a patient with an abscess to local trauma site. Saw this patient this morning. Patient is getting I&D. Pain is controlled. Bowels stable. is at the bedside. Review of systems done for constitutional, cardiovascular, GI, pulmonary; dermatologic: relevant findings as above. Current medications are reviewed that include IV Ceftazidime. On examination, temperature 97, pulse 98, respirations 20, blood pressure 130/87, pulse ox 94% on room air. GENERAL APPEARANCE: Lying in bed, comfortable. EYES: Pupils equal. Conjunctivae normal. NECK: JVD not raised. Mass not palpable. RESPIRATORY: Effort normal. Lungs are clear. CARDIOVASCULAR: First and second sounds normal. No edema. ABDOMEN: Soft. Liver and spleen not palpable. EXTREMITIES: Area of bulkiness and a puncture wound on the left leg. INVESTIGATIONS: Urine hCG negative. ASSESSMENT: 1. Left leg wound abscess but not ( ) manifesting awaiting I&D. 2. Failed outpatient treatment. 3. Hyperlipidemia. 4. Primary osteoarthritis, multiple joints bilateral. PLAN: Continue current medication and treatment plan. Care was discussed with the patient and . Await I&D.
[2016-05-29] MEDS: PRAVASTATIN SODIUM 40 MG TAB PO SCH (20:40)
[2016-05-30] MEDS: SODIUM CHLORIDE 0.9% 1,000 ML IV SCH ×2 (03:39→11:10)
[2016-05-30] MEDS: HEPARIN SODIUM,PORCINE 5,000 UNIT/ML 1 ML VIAL SQ SCH (07:36)
[2016-05-30] MEDS: diphenhydrAMINE 25 MG CAP PO SCH (07:36)
[2016-05-30 07:38] VITALS: BP 118/62; PULSE 86; TEMP 97.8
[2016-05-30 08:59] LABS: Basophils % (A) 0 %; CH 30.7; Eosinophils % (A) 0 %; HCT 40.1 % (34.0-46.0); HDW 2.46; HGB 12.7 gm/dL (11.4-16.0); Luc # (Auto) 0.27; Luc % (Auto) 3; Lymphocytes % (A) 21 %; MCH 30.4 pg (25.0-35.0); MCHC 31.5 g/dL (31.0-37.0); MCV 96.4 fL (80.0-100.0); Mean Platelet Volume 6.7; Monocytes # (A) 0.6 k/uL (0-1.0); Monocytes % (A) 6 %; Neutrophils # (A) 6.6 k/uL (1.3-7.7); Neutrophils % (A) 70 %; RBC 4.16 m/uL (3.80-5.40); RDW 12.6 % (11.5-15.5); WBC 9.5 k/uL (3.8-10.6); WBC (Perox) 10.13
[2016-05-30 09:03] LABS: Anion Gap 12 mmol/L; Blood Urea Nitrogen 10 mg/dL (7-17); Calcium 9.2 mg/dL (8.4-10.2); Carbon Dioxide 25 mmol/L (22-30); Chloride 105 mmol/L (98-107); Glucose 117 mg/dL (74-99); Non-African American GFR(MDRD) >60 (>60 ml/min/1.73 sqM); Potassium 4.2 mmol/L (3.5-5.1); Sodium 142 mmol/L (137-145)
--- NOTE | 2016-05-30 15:29 | P.PN ---
Subjective Principal diagnosis: Left leg abscess This is a 55-year-old female. She gives history that she was hiking in [place] in March around [place] time and she ended up tripping and falling and hitting her left nails on a rock. She states that time she had 2 small lacerations. She ended up going to urgent care and had ultrasound, x- rays done and was instructed to keep the area clean and dressed. She did not receive antibiotics at that time. She states the areas scabbed over and the one closest to her knee healed completely but the one distally occasionally would use if pressure was applied to the area. Last week she followed up with her primary care physician was placed on doxycycline. She states she was at work yesterday and noticed that her lower leg had extreme edema along with redness. She denies any significant pain. She came into [facility] emergency center for evaluation. She was afebrile. White count 8.4, GFR greater than 60, AST 41, albumin 4.6. Wound culture was obtained from the left leg which is showing a gram-negative bacilli and gram-positive cocci. She received 1 dose of daptomycin in the emergency center and has been started on vancomycin and [facility] She had a tib-fib x-ray that showed soft tissue swelling with no sign of osteomyelitis. Ultrasound showed a complex mass of 6 x 1.6 cm abscess or hematoma in the left anterior calf. Patient states the area is slightly improved and slightly less tender since admission. Her tetanus was updated at the urgent care center recently. Patient is feeling better today. She is having no significant fever, chills or rigors. Leg is less swollen and erythematous. The surgical incision and drainages occurred today. It is packed. No reveals evidence of no bony involvement. Is improved today and looks forward to going home Objective - Vital Signs Vital signs: Vital Signs Temp 97.8 F 05/30/16 07:00 Pulse 86 05/30/16 07:00 Resp 16 05/30/16 07:00 BP 118/62 05/30/16 07:00 Pulse Ox 98 05/30/16 07:00 Intake & Output 05/29/16 05/30/16 05/30/16 18:59 06:59 18:59 Intake Total 850 1040 Output Total 5 Balance 845 1040 Intake: IV 850 Intake, IV Titration 800 Amount Sodium Chloride 0.9% 1, 800 000 ml @ 100 mls/hr IV . Q10H [facility] Rx#:[id number] Oral 240 Output: Estimated Blood Loss 5 Other: Voiding Method Toilet Toilet Toilet # Voids 2 2 2 - Exam Gen: This is a 55-year-old female. She is sitting up in bed and appears to be in no acute distress. HEENT: Head is atraumatic, normocephalic. Pupils equal, round. Sclerae is anicteric. Oral mucous membranes are moist. Dentition is in good order. No lesions noted. NECK: Supple. No JVD. No lymphadenopathy. No thyromegaly. LUNGS: Clear to auscultation. No wheezes or rhonchi. No intercostal retractions. HEART: Regular rate and rhythm. No murmur. ABDOMEN: Soft. Bowel sounds are present. No masses. No tenderness. EXTREMITIES: No pedal edema. No calf tenderness. Left pretibial area has area of erythema, Surgical dressing is removed. There is evidence of the abscess cavities that have been drained. There is medial and lateral. Each measures approximately one by one with a depth of 2-1/2 cm. The packing is removed and Aquacel silver rope was put into both the areas. NEUROLOGICAL: Patient is awake, alert and oriented x3. - Labs CBC & Chem 7: 05/30/16 07:35 05/30/16 07:35 Labs: Abnormal Lab Results - Last 24 Hours (Table) 05/30/16 Range/Units 07:35 Glucose 117 H (74-99) mg/dL Microbiology - Last 24 Hours (Table) 05/29/16 14:26 Gram Stain - Preliminary Leg - Left Tissue Culture - Preliminary 05/29/16 14:26 Gram Stain - Preliminary Leg - Left Wound Culture - Preliminary 05/29/16 14:26 Anaerobic Culture - Preliminary Leg - Left 05/29/16 14:26 Anaerobic Culture - Preliminary Leg - Left Laboratory Results WBC 9.5 k/uL (3.8-10.6) 05/30/16 07:35 RBC 4.16 m/uL (3.80-5.40) 05/30/16 07:35 Hgb 12.7 gm/dL (11.4-16.0) 05/30/16 07:35 Hct 40.1 % (34.0-46.0) 05/30/16 07:35 MCV 96.4 fL (80.0-100.0) 05/30/16 07:35 MCH 30.4 pg (25.0-35.0) 05/30/16 07:35 MCHC 31.5 g/dL (31.0-37.0) 05/30/16 07:35 RDW 12.6 % (11.5-15.5) 05/30/16 07:35 Plt Count 282 k/uL (150-450) 05/30/16 07:35 Neutrophils % 70 % 05/30/16 07:35 Lymphocytes % 21 % 05/30/16 07:35 Monocytes % 6 % 05/30/16 07:35 Eosinophils % 0 % 05/30/16 07:35 Basophils % 0 % 05/30/16 07:35 Neutrophils # 6.6 k/uL (1.3-7.7) 05/30/16 07:35 Lymphocytes # 2.0 k/uL (1.0-4.8) 05/30/16 07:35 Monocytes # 0.6 k/uL (0-1.0) 05/30/16 07:35 Eosinophils # 0.0 k/uL (0-0.7) 05/30/16 07:35 Basophils # 0.0 k/uL (0-0.2) 05/30/16 07:35 APTT 24.5 sec (22.0-30.0) 05/27/16 07:54 Sodium 142 mmol/L (137-145) 05/30/16 07:35 Potassium 4.2 mmol/L (3.5-5.1) 05/30/16 07:35 Chloride 105 mmol/L (98-107) 05/30/16 07:35 Carbon Dioxide 25 mmol/L (22-30) 05/30/16 07:35 Anion Gap 12 mmol/L 05/30/16 07:35 BUN 10 mg/dL (7-17) 05/30/16 07:35 Creatinine 0.78 mg/dL (0.52-1.04) 05/30/16 07:35 Est GFR (MDRD) Af Amer >60 (>60 ml/min/1.73 sqM) 05/30/16 07:35 Est GFR (MDRD) Non-Af >60 (>60 ml/min/1.73 sqM) 05/30/16 07:35 Glucose 117 mg/dL (74-99) H 05/30/16 07:35 Calcium 9.2 mg/dL (8.4-10.2) 05/30/16 07:35 Total Bilirubin 0.5 mg/dL (0.2-1.3) 05/27/16 07:54 AST 19 U/L (14-36) 05/27/16 07:54 ALT 23 U/L (9-52) 05/27/16 07:54 Alkaline Phosphatase 88 U/L (38-126) 05/27/16 07:54 Total Protein 6.3 g/dL (6.3-8.2) 05/27/16 07:54 Albumin 3.6 g/dL (3.5-5.0) 05/27/16 07:54 Urine HCG, Qual Not Detected (Not Detectd) 05/28/16 21:40 Vancomycin Trough 13.4 ug/mL 05/28/16 08:36 Microbiology 05/29/16 14:26 Leg - Left Gram Stain - Preliminary 05/29/16 14:26 Leg - Left Tissue Culture - Preliminary 05/29/16 14:26 Leg - Left Gram Stain - Preliminary 05/29/16 14:26 Leg - Left Wound Culture - Preliminary 05/29/16 14:26 Leg - Left Anaerobic Culture - Preliminary 05/29/16 14:26 Leg - Left Anaerobic Culture - Preliminary 05/26/16 16:23 Blood Blood Culture - Preliminary No Growth after 72 hours 05/26/16 16:23 Leg - Left Gram Stain - Final 05/26/16 16:23 Leg - Left Wound Culture - Final Serratia marcescens Assessment and Plan (1) Abscess of left lower leg Narrative/Plan: Pleasant 55-year-old female presents to hospital with increasing pain and swelling to her left pretibial area. She suffered a fall while she was hiking on . She failed to respond well to therapy. Cultures been obtained showing evidence of a gram-negative organism. Serratia marcescens has now been isolated it is susceptible to quinolones as well as sulfa agents. Surgical incision and drainage is planned for the morning. If there appears to be no involvement underlying bony structure at the time of the incision and drainage wouldn't be the option for oral antibiotic therapy with ciprofloxacin to complete her course of therapy over the next couple of weeks for this complex abscess. We will follow her in the office at the end of therapy also. Local wound care has been applied with Aquacel silver rope. This will be done at home also should be changed every other day. She'll need to be seen in the office this week. Antibiotic therapy at discharge is with ciprofloxacin. Status: Acute (2) Serratia marcescens infection Status: Acute
--- NOTE | 2016-05-30 20:37 | DS ---
DATE OF ADMISSION: 05/26/2016 DATE OF DISCHARGE: 05/30/2016 FINAL DIAGNOSES: 1. Left leg wound and abscess, having failed outpatient treatment with wound cultures growing Serratia marcescens. 2. Hyperlipidemia. 3. Primary osteoarthritis of multiple joints, bilateral. CONSULTATIONS: Dr. Sher, infectious disease; Dr. Monteiro, general surgery. HOSPITAL COURSE: This patient suffered an injury by a rock while tracking and developed an abscess of the area. I&D was carried out. Patient had failed outpatient treatment. Cultures grew Serratia marcescens. Doing better at the time of discharge. Care was discussed with the patient DISCHARGE MEDICATIONS: 1. Fosamax 70 mg on Wednesday. 2. Pravachol 40 mg q.h.s. 3. Cipro 500 mg q.12 h. ( ) On examination, decreased pain and swelling of the left leg. Lungs are clear.
== END 2016-05-30 14:28 | disposition home or self-care (01) | DRG 572 ==
LOC: EC 14:52 → 4MS4W 17:51
PROVIDERS: ADMIT Hospitalist; ATTEND Hospitalist
PROC: 0J9P0ZZ Drainage of Left Lower Leg Subcutaneous Tissue and Fascia, Open Approach (ICD-10-PCS; principal; 2016-05-29 14:15)
PROC: 0JBP0ZZ Excision of Left Lower Leg Subcutaneous Tissue and Fascia, Open Approach (ICD-10-PCS; principal; 2016-05-29 14:15)
DX: L02.416 Cutaneous abscess of left lower limb (principal); E78.5 Hyperlipidemia, unspecified; L03.116 Cellulitis of left lower limb; F17.200 Nicotine dependence, unspecified, uncomplicated; J30.2 Other seasonal allergic rhinitis; M19.91 Primary osteoarthritis, unspecified site; M85.80 Other specified disorders of bone density and structure, unspecified site; Z82.49 Family history of ischemic heart disease and other diseases of the circulatory system; Z88.0 Allergy status to penicillin; Z79.899 Other long term (current) drug therapy
CPT/HCPCS: 36415; 80048; 80053; 80202; 81025; 85025; 85730; 87040; 87070; 87075; 87077; 87186; 87205; 88304; 96361; 96374; 99285

== ENCOUNTER 2016-08-12 07:12 | Emergency (ER) | payer BC ==
[2016-08-12] MEDS ORDERED: ONDANSETRON ODT 4 MG TAB PO STA (07:36)
[2016-08-12] MEDS ORDERED: ACETAMINOPHEN TAB 500 MG TAB PO STA (07:39)
[2016-08-12] MEDS ORDERED: IBUPROFEN 600 MG TAB PO STA (07:39)
--- NOTE | 2016-08-12 07:39 | ED ---
General Adult HPI - General Chief complaint: Headache Stated complaint: headache Time Seen by Provider: 08/12/16 07:31 Source: patient, RN notes reviewed Mode of arrival: ambulatory Limitations: no limitations - History of Present Illness Initial comments: Patient is a pleasant 55-year-old female presenting to the emergency Department with several complaints. Onset was yesterday. Patient complains of sinus congestion and pressure. Patient complains of bilateral earache. Patient complains of headache. Patient does have a cough however cough has been nonproductive. Patient has had some fatigue and general malaise. No dyspnea. No isolated area of weakness or confusion. - Related Data Home Medications Medication Instructions Recorded Confirmed Alendronate Sodium [Fosamax] 70 mg PO TU 05/26/16 08/12/16 Lovastatin [Mevacor] 40 mg PO HS 08/12/16 08/12/16 diphenhydrAMINE [Benadryl] 25 mg PO HS PRN 08/12/16 08/12/16 Previous Rx's Medication Instructions Recorded Azithromycin [Zithromax Z-pack] 250 mg PO DIRECTED #6 tab 08/12/16 Allergies Allergy/AdvReac Type Severity Reaction Status Date / Time Penicillins Allergy Rash/Hives Verified 08/12/16 08:35 Review of Systems ROS Statement: Those systems with pertinent positive or pertinent negative responses have been documented in the HPI. ROS Other: All systems not noted in ROS Statement are negative. Constitutional: Reports: fever Eyes: Denies: eye pain ENT: Reports: ear pain, congestion Respiratory: Reports: cough. Denies: dyspnea Cardiovascular: Denies: chest pain Endocrine: Reports: fatigue Gastrointestinal: Reports: nausea. 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 NO OUTSIDE SERVICES RECIEVED. 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 No pets in the home. Recent travel to [place] in March and also to [place]. Smoking Status: Never smoker Past Alcohol Use History: Occasional Past Drug Use History: None Reported - Past Family History Mother Family Medical History: Cancer, Diabetes Mellitus Additional Family Medical History / Comment(s): BREAST CANCER, FROM A BLOOD CLOT Father Family Medical History: Coronary Artery Disease (CAD) Additional Family Medical History / Comment(s): HAD A HEART TRANSPLANT AT AGE 52 -LIVED FOR 5 MORE YEARS. General Exam Limitations: no limitations General appearance: alert, in no apparent distress Head exam: Present: atraumatic, normocephalic Eye exam: Present: normal appearance, PERRL ENT exam: Present: other (Left TM erythema. Tenderness over the frontal, ethmoid, and maxillary sinuses.) Neck exam: Present: normal inspection, full ROM. Absent: tenderness, meningismus, lymphadenopathy Respiratory exam: Present: normal lung sounds bilaterally Cardiovascular Exam: Present: tachycardia GI/Abdominal exam: Present: soft. Absent: tenderness Extremities exam: Present: normal inspection. Absent: pedal edema, calf tenderness Neurological exam: Present: alert. Absent: motor sensory deficit Psychiatric exam: Present: normal affect, normal mood Skin exam: Absent: rash Course Vital Signs 08/12/16 08/12/16 08/12/16 07:25 08:13 08:39 Temperature 100.7 F H 100.5 F H 101.1 F H Pulse Rate 131 H 114 H 114 H Respiratory 18 20 14 Rate Blood Pressure 141/84 130/71 113/59 O2 Sat by Pulse 96 94 L 95 Oximetry 08/12/16 08/12/16 09:25 10:36 Temperature 100.7 F H 97.3 F L Pulse Rate 118 H 102 H Respiratory 18 16 Rate Blood Pressure 133/70 123/73 O2 Sat by Pulse 96 95 Oximetry Medical Decision Making - Medical Decision Making Patient reexamined and resting comfortably in bed. Patient does feel much better however still has a headache. Patient does not want any further medication for her headache. Patient and family updated on results and need for close follow-up. Both are comfortable with discharge home. - Lab Data Result diagrams: 08/12/16 10:07 08/12/16 10:07 Lab Results 08/12/16 08/12/16 08/12/16 Range/Units 10:07 10:07 10:07 WBC 5.1 (3.8-10.6) k/uL RBC 4.41 (3.80-5.40) m/uL Hgb 13.9 (11.4-16.0) gm/dL Hct 41.0 (34.0-46.0) % MCV 93.0 (80.0-100.0) fL MCH 31.4 (25.0-35.0) pg MCHC 33.8 (31.0-37.0) g/dL RDW 13.1 (11.5-15.5) % Plt Count 240 (150-450) k/uL Neutrophils % 76 % Lymphocytes % 9 % Monocytes % 10 % Eosinophils % 0 % Basophils % 1 % Neutrophils # 3.9 (1.3-7.7) k/uL Lymphocytes # 0.5 L (1.0-4.8) k/uL Monocytes # 0.5 (0-1.0) k/uL Eosinophils # 0.0 (0-0.7) k/uL Basophils # 0.0 (0-0.2) k/uL PT (9.0-12.0) sec INR (<1.1) APTT (22.0-30.0) sec Sodium 138 (137-145) mmol/L Potassium 4.3 (3.5-5.1) mmol/L Chloride 103 (98-107) mmol/L Carbon Dioxide 26 (22-30) mmol/L Anion Gap 9 mmol/L BUN 12 (7-17) mg/dL Creatinine 0.59 (0.52-1.04) mg/dL Est GFR (MDRD) Af Amer >60 (>60 ml/min/1.73 sqM) Est GFR (MDRD) Non-Af >60 (>60 ml/min/1.73 sqM) Glucose 107 H (74-99) mg/dL Plasma Lactic Acid Oscar 0.7 (0.7-2.0) mmol/L Calcium 9.3 (8.4-10.2) mg/dL Total Bilirubin 0.6 (0.2-1.3) mg/dL AST 35 (14-36) U/L ALT 33 (9-52) U/L Alkaline Phosphatase 79 (38-126) U/L Total Protein 7.6 (6.3-8.2) g/dL Albumin 4.4 (3.5-5.0) g/dL 08/12/16 Range/Units 10:07 WBC (3.8-10.6) k/uL RBC (3.80-5.40) m/uL Hgb (11.4-16.0) gm/dL Hct (34.0-46.0) % MCV (80.0-100.0) fL MCH (25.0-35.0) pg MCHC (31.0-37.0) g/dL RDW (11.5-15.5) % Plt Count (150-450) k/uL Neutrophils % % Lymphocytes % % Monocytes % % Eosinophils % % Basophils % % Neutrophils # (1.3-7.7) k/uL Lymphocytes # (1.0-4.8) k/uL Monocytes # (0-1.0) k/uL Eosinophils # (0-0.7) k/uL Basophils # (0-0.2) k/uL PT 10.0 (9.0-12.0) sec INR 1.0 (<1.1) APTT 22.6 (22.0-30.0) sec Sodium (137-145) mmol/L Potassium (3.5-5.1) mmol/L Chloride (98-107) mmol/L Carbon Dioxide (22-30) mmol/L Anion Gap mmol/L BUN (7-17) mg/dL Creatinine (0.52-1.04) mg/dL Est GFR (MDRD) Af Amer (>60 ml/min/1.73 sqM) Est GFR (MDRD) Non-Af (>60 ml/min/1.73 sqM) Glucose (74-99) mg/dL Plasma Lactic Acid Oscar (0.7-2.0) mmol/L Calcium (8.4-10.2) mg/dL Total Bilirubin (0.2-1.3) mg/dL AST (14-36) U/L ALT (9-52) U/L Alkaline Phosphatase (38-126) U/L Total Protein (6.3-8.2) g/dL Albumin (3.5-5.0) g/dL - Radiology Data Radiology results: report reviewed (Computed tomography scan of the brain shows no acute process), image reviewed (Chest x-ray shows no acute process) Disposition Clinical Impression: Sinusitis Disposition: HOME SELF-CARE Condition: Stable Instructions: Acute Headache (ED), Sinusitis (ED) Additional Instructions: Please follow-up with primary care physician this week. Return for uncontrolled headaches, uncontrolled fever, weakness or confusion, worsening symptoms or any other concerns. [id number] Tylenol or Motrin as needed. Prescriptions: Azithromycin [Zithromax Z-pack] 250 mg PO DIRECTED #6 tab Referrals: Jennifer Garcia MD [Primary Care Provider] - 1-2 days
[2016-08-12] MEDS: SODIUM CHLORIDE 0.9% 500 ML IV SCH ×2 (10:10→10:38)
--- NOTE | 2016-08-12 10:29 | XR ---
EXAMINATION TYPE: XR chest 2V DATE OF EXAM: 08/12/2016 10:25 AM COMPARISON: None HISTORY: 55-year-old female with fever and cough TECHNIQUE: PA and lateral views FINDINGS: Heart is upper limits of normal in size. Aorta and pulmonary vasculature are within normal limits. So me strandy atelectasis at the right base. Mild interstitial prominence in a chronic appearance. No co nsolidation or pleural effusion. Advanced degenerative changes at the right shoulder likely related c hronic healed surgical neck fracture deformity. No pleural effusion. IMPRESSION: Heart at the upper limits of normal in size. Some strandy atelectasis at the right base. No definite acute process.
[2016-08-12 10:39] LABS: Basophils % (A) 1 %; CH 31.4; CHCM 33.9; Eosinophils % (A) 0 %; HDW 2.29; HGB 13.9 gm/dL (11.4-16.0); Luc % (Auto) 4; Lymphocytes # (A) 0.5 k/uL (1.0-4.8); Lymphocytes % (A) 9 %; MCH 31.4 pg (25.0-35.0); MCHC 33.8 g/dL (31.0-37.0); Mean Platelet Volume 6.5; Monocytes # (A) 0.5 k/uL (0-1.0); Monocytes % (A) 10 %; Neutrophils # (A) 3.9 k/uL (1.3-7.7); Neutrophils % (A) 76 %; RBC 4.41 m/uL (3.80-5.40); RDW 13.1 % (11.5-15.5); WBC 5.1 k/uL (3.8-10.6); WBC (Perox) 5.31
[2016-08-12 10:48] LABS: ALT 33 U/L (9-52); AST 35 U/L (14-36); Alkaline Phosphatase 79 U/L (38-126); Anion Gap 9 mmol/L; Blood Urea Nitrogen 12 mg/dL (7-17); Calcium 9.3 mg/dL (8.4-10.2); Carbon Dioxide 26 mmol/L (22-30); Chloride 103 mmol/L (98-107); Glucose 107 mg/dL (74-99); Non-African American GFR(MDRD) >60 (>60 ml/min/1.73 sqM); Partial Thromboplastin Time 22.6 sec (22.0-30.0); Potassium 4.3 mmol/L (3.5-5.1); Sodium 138 mmol/L (137-145); Total Bilirubin 0.6 mg/dL (0.2-1.3); Total Protein 7.6 g/dL (6.3-8.2)
--- NOTE | 2016-08-12 11:17 | CT ---
EXAMINATION TYPE: CT brain wo con DATE OF EXAM: 08/12/2016 11:01 AM COMPARISON: NONE HISTORY: 55-year-old female with headaches TECHNIQUE: Examination was done in axial plane without intravenous contrast. Coronal and sagittal r econstructions performed. CT DLP: 909.30 mGycm Automated exposure control for dose reduction was used. FINDINGS: There is no evidence of acute intracranial hemorrhage, acute ischemic changes, mass, mass-effect, or extra-axial fluid collection. There is no effacement of cerebral sulci or basal subarachnoid cister ns. There is no hydrocephalus. There is no midline shift. Roe-white matter distinction is preserv ed. Visualized paranasal sinuses and mastoid air cells are well pneumatized. IMPRESSION: No acute intracranial abnormality seen.
[2016-08-12 11:28] LABS: Appearance,Urine Clear (Clear); Bilirubin,Urine Negative (Negative); Glucose,Urine (UA) Negative (Negative); Ketones,Urine 1+ (Negative); Leukocyte Esterase,Urine Negative (Negative); Nitrite,Urine Negative (Negative); PH, Urine 6.5 (5.0-8.0); Protein,Urine Negative (Negative); Specific Gravity,Urine 1.018 (1.001-1.035); UA Billing (MACRO vs. MICRO) CHEM; Urobilinogen,Urine <2.0 mg/dL (<2.0)
[2016-08-12 12:01] VITALS: BP 134/81; PULSE 103; RESP 18; TEMP 98
== END 2016-08-12 11:48 | disposition home or self-care (01) ==
LOC: EC 07:12
DX: J32.9 Chronic sinusitis, unspecified (principal); E78.5 Hyperlipidemia, unspecified; M19.90 Unspecified osteoarthritis, unspecified site; Z79.899 Other long term (current) drug therapy; Z88.0 Allergy status to penicillin
CPT/HCPCS: 36415; 70450; 71020; 80053; 81003; 83605; 85025; 85610; 85730; 87040; 87086; 96360; 99284

== ENCOUNTER → 2019-05-16 | Outpatient (CLI) | payer BC ==
--- NOTE | 2019-05-16 08:33 | CT ---
EXAMINATION TYPE: CT sinus wo con DATE OF EXAM: 05/16/2019 COMPARISON: 05/14/2014 HISTORY: sinusitis CT DLP: 642.5 mGycm. Automated Exposure Control for Dose Reduction was Utilized. TECHNIQUE: CT scan of the sinuses is performed without contrast, axial images are obtained, coronal r eformatted images are also reviewed. FINDINGS: Old fracture of the medial wall the right maxillary sinus is seen. There is inferior nasal turbinate mucosal hypertrophy bilaterally and a small nonobstructing left middle nasal turbinate conc nelson bullosa. The paranasal sinuses and visualized portions of the mastoid air cells are well aerated. No acute fracture seen. The globes, lenses, and extraocular muscles are symmetric. The ostiomeatal complexes are patent bilaterally. There are small bilateral Jose cells measuring 5 mm on the right and 4 mm on the left. Upper mandibular joints are symmetric and demonstrate mild dege nerative change. IMPRESSION: 1. Small bilateral nonobstructive Jose cells and left middle nasal turbinate nonobstructive laura bullosa. 2. Mild inferior nasal turbinate mucosal hypertrophy bilaterally. 3. Paranasal sinuses are currently well aerated and ostiomeatal complexes are patent. 4. Old fracture of the right lamina papyracea.
== END | disposition home or self-care (01) ==
LOC: RADCTMAIN 06:50
PROVIDERS: ATTEND Internal Medicine
DX: J32.9 Chronic sinusitis, unspecified (principal); J34.89 Other specified disorders of nose and nasal sinuses
CPT/HCPCS: 70486

== ENCOUNTER → 2019-06-10 | Outpatient (CLI) | payer BC ==
--- NOTE | 2019-06-10 10:54 | XR ---
EXAMINATION TYPE: XR shoulder complete RT DATE OF EXAM: 06/10/2019 CLINICAL HISTORY: Recent abnormal x-ray. TECHNIQUE: Three views of the right shoulder are obtained. COMPARISON: Chest x-ray 3 days earlier and older study August 12, 2016. FINDINGS: There is old healed fracture of the right femoral head with advanced glenohumeral joint sp bhanu narrowing and prominent spurring. Findings correlate better with 2017 x-ray versus. Mild to moder ate narrowing acromial navicular joint redemonstrated. No suspicious bony destructive lesion when cor relating with 2017 x-ray. The visualized ribs are intact and unremarkable. IMPRESSION: As above.
== END | disposition home or self-care (01) ==
LOC: RADXRMAIN 10:00
PROVIDERS: ATTEND Internal Medicine
DX: R93.89 Abnormal findings on diagnostic imaging of other specified body structures (principal)

== ENCOUNTER → 2019-06-19 | Outpatient (CLI) | payer BC | END | disposition home or self-care (01) | CPT/HCPCS: 71250 ==

== ENCOUNTER → 2024-03-10 | Outpatient (CLI) | payer BC ==
[2024-03-10 11:02] LABS: ALT 22 U/L (8-44); AST 26 U/L (13-35); Albumin 4.7 g/dL (3.8-4.9); Albumin/Globulin Ratio 2.04 Ratio (1.60-3.17); Alkaline Phosphatase 86 U/L (41-126); BUN/Creat Ratio 15.62 Ratio (12.00-20.00); Blood Urea Nitrogen 12.5 mg/dL (9.0-27.0); Calcium 9.7 mg/dL (8.7-10.3); Chloride 101 mmol/L (96-109); Chol/HDL Ratio 1.93 Ratio; Globulin 2.3 g/dL (1.6-3.3); Glucose 93 mg/dL (70-110); LDL Cholesterol,Calculated 87.6 mg/dL (0.0-131.0); Potassium 4.4 mmol/L (3.5-5.5); Sodium 140 mmol/L (135-145); Total Bilirubin 0.4 mg/dL (0.3-1.2); VLDL Calculation 13.38 mg/dL (5.00-40.00)
== END | disposition home or self-care (01) ==
LOC: LABWHC1 07:00
PROVIDERS: ATTEND Internal Medicine
DX: E78.00 Pure hypercholesterolemia, unspecified (principal)
CPT/HCPCS: 36415; 80053; 80061; 84443